=== PATIENT | female | born 1930 | race Two or more races ===

== ENCOUNTER 2019-10-01 10:39 | Inpatient (IN) | payer MEDICARE, MEDICAID ==
[~2019-10-01] VITALS: Ht 152.4 cm; Wt 72.0 kg
[~2019-10-01 10:39] MED LIST: ALPR0.254 PO; LIS10T PO; PRAV20TA3 PO; Pantoprazole Sodium Sesquihydr PO; RIVA20TA PO; SERT-274 PO
[2019-10-01] MEDS ORDERED: FAMOTIDINE (10MG/ML) 2ML VL IV ONE (12:15)
[2019-10-01] MEDS ORDERED: ACETAMINOPHEN 325 MG RECT SUPP PR PRN (12:15)
[2019-10-01] MEDS ORDERED: hydrALAZINE HCL 20 MG/ML VL IV PRN (12:30)
[2019-10-01 13:31] LABS: Basophils # (auto) 0 uL; Basophils % (auto) 0.4 % (0.0-2.0); Eosinophils # (auto) 0 uL; Eosinophils % (auto) 0.4 % (0.0-7.0); Hematocrit 45.2 % (36.0-46.0); Hemoglobin 15.2 g/dL (12.2-16.2); Lymphocytes # (auto) 1.4 uL; Lymphocytes % (auto) 23.9 % (10.0-50.0); Mean Corpuscular Hemoglobin 30.6 pg (28.0-32.0); Mean Corpuscular Hgb Conc. 33.7 g/dL (32.0-36.0); Mean Corpuscular Volume 90.8 fL (80.0-100.0); Monocytes # (auto) 0.6 uL; Monocytes % (auto) 9.5 % (0.0-12.0); Neutrophils # (auto) 3.8 uL; Neutrophils % (auto) 65.8 % (37.0-80.0); Nucleated Red Blood Cells % 0.1 %; Platelet Count (auto) 111 10^3/uL (140-450); Red Blood Cells 4.98 10^6/uL (4.0-5.20); Red Cell Distribution Width 14.5 % (11.8-14.3); White Blood Cell 5.8 10^3/uL (4.4-10.8)
[2019-10-01 13:46] LABS: Calcium 9.3 mg/dL (8.5-10.1); INR 1.07 (0.9-1.15); Partial Thromboplastin Time 27.1 sec (23.64-32.05); Potassium 4.1 mmol/L (3.5-5.1)
[2019-10-01 13:50] LABS: BUN/Creatinine Ratio 21.7; Bilirubin, Total 0.4 mg/dL (0.2-1.0)
[2019-10-01 13:52] VITALS: BP 160/90
[2019-10-01] MEDS: D5W/SOD CHL 0.45%/KCL 20MEQ 1,000 ML IV SCH (15:46)
[2019-10-01 15:58] LABS: Urine Bacteria FEW /hpf (None Seen); Urine Blood Negative /uL (Negative); Urine Specific Gravity 1.011 (1.001-1.035); Urine WBC 44 /hpf (0 - 5); Urine WBC Clumps PRESENT /hpf (None Seen)
[2019-10-01 17:00] VITALS: BP 164/97
[2019-10-01] MEDS ORDERED: GABA100C9 PO (18:20)
[2019-10-01 22:00] VITALS: BP 131/51
[2019-10-01] MEDS: ALPRAZolam 0.25 MG TAB PO SCH (22:10)
[2019-10-02] MEDS: MORPHINE SULF INJ 2 MG/ML SYRINGE 1ML IV PRN ×2 (02:35→19:58)
[2019-10-02] MEDS: D5W/SOD CHL 0.45%/KCL 20MEQ 1,000 ML IV SCH ×2 (04:38→21:35)
[2019-10-02 05:00] VITALS: BP 112/49
[2019-10-02] MEDS: ALPRAZolam 0.25 MG TAB PO SCH (06:00)
[2019-10-02] MEDS ORDERED: MIDAZOLAM HCL 5 MG/ML-1ML VIAL ONE (08:35)
[2019-10-02] MEDS ORDERED: NALOXONE HCL 0.4 MG/ML VIAL ONE (08:35)
[2019-10-02] MEDS ORDERED: LIDOCAINE VISCOUS 2% 15ML UD ONE (08:35)
[2019-10-02] MEDS ORDERED: FLUMAZENIL 0.1 MG/ML INJ 10ML MDV IV ONE (08:35)
[2019-10-02] MEDS ORDERED: SODIUM CHLORIDE LOCK 10 ML ONE (08:35)
[2019-10-02] MEDS ORDERED: fentaNYL CITRATE 100 MCG/2 ML VL ONE (08:35)
[2019-10-02] MEDS ORDERED: diphenhdrAMINE HCL 50 MG/1 ML VL ONE (08:36)
[2019-10-02 09:00] VITALS: BP 154/77
[2019-10-02] MEDS ORDERED: FAMOTIDINE (10MG/ML) 2ML VL IV SCH (10:00)
[2019-10-02] MEDS ORDERED: LORazepam 2MG/ML-1ML VIAL IV PRN (10:15)
[2019-10-02] MEDS ORDERED: cefTRIAXone 1GM/50ML D5W 50 ML IV ONE (10:15)
[2019-10-02 13:00] VITALS: BP 131/65
[2019-10-02 17:00] VITALS: BP 124/47
[2019-10-02] MEDS: OMEPRAZOLE 20MG/10ML ORAL SUSP GT SCH (17:23)
[2019-10-02 22:03] VITALS: BP 155/80
[2019-10-03 05:00] VITALS: BP 123/56
[2019-10-03 05:15] LABS: Basophils # (auto) 0 uL; Basophils % (auto) 0.5 % (0.0-2.0); Eosinophils # (auto) 0 uL; Eosinophils % (auto) 0.4 % (0.0-7.0); Hematocrit 39.9 % (36.0-46.0); Hemoglobin 13.7 g/dL (12.2-16.2); Lymphocytes # (auto) 1.3 uL; Lymphocytes % (auto) 21.1 % (10.0-50.0); Mean Corpuscular Hemoglobin 31.2 pg (28.0-32.0); Mean Corpuscular Hgb Conc. 34.3 g/dL (32.0-36.0); Monocytes # (auto) 0.7 uL; Monocytes % (auto) 10.6 % (0.0-12.0); Neutrophils # (auto) 4.2 uL; Neutrophils % (auto) 67.4 % (37.0-80.0); Platelet Count (auto) 106 10^3/uL (140-450); Red Blood Cells 4.38 10^6/uL (4.0-5.20); Red Cell Distribution Width 14.4 % (11.8-14.3); White Blood Cell 6.3 10^3/uL (4.4-10.8)
[2019-10-03 05:36] LABS: Calcium 8.2 mg/dL (8.5-10.1); Potassium 3.9 mmol/L (3.5-5.1)
[2019-10-03 05:38] LABS: BUN/Creatinine Ratio 22.8
[2019-10-03 08:36] VITALS: BP 114/53
[2019-10-03] MEDS ORDERED: cefTRIAXone 1GM/50ML D5W 50 ML IV SCH (09:00)
[2019-10-03] MEDS: OMEPRAZOLE 20MG/10ML ORAL SUSP GT SCH (11:00)
[2019-10-03 12:45] VITALS: BP 114/53
[2019-10-03 12:50] VITALS: BP 100/49
[2019-10-03 16:49] VITALS: BP 104/68
== END 2019-10-03 14:15 | disposition hospice, home (50) | DRG 394 ==
LOC: CENTRAL 10:39
PROVIDERS: ADMIT Internal Medicine; ATTEND Internal Medicine
PROC: 0D20XUZ Change Feeding Device in Upper Intestinal Tract, External Approach (ICD-10-PCS; principal; 2019-10-02 12:49)
DX: K94.23 Gastrostomy malfunction (principal); D68.69 Other thrombophilia; N39.0 Urinary tract infection, site not specified; I48.91 Unspecified atrial fibrillation; G30.9 Alzheimer's disease, unspecified; F02.80 Dementia in other diseases classified elsewhere, unspecified severity, without behavioral disturbance, psychotic disturbance, mood disturbance, and anxiety; I25.10 Atherosclerotic heart disease of native coronary artery without angina pectoris; Y83.3 Surgical operation with formation of external stoma as the cause of abnormal reaction of the patient, or of later complication, without mention of misadventure at the time of the procedure; I10 Essential (primary) hypertension; K20.9 Esophagitis, unspecified; Z74.01 Bed confinement status; Z95.0 Presence of cardiac pacemaker; Z95.1 Presence of aortocoronary bypass graft; Z88.0 Allergy status to penicillin; Z91.018 Allergy to other foods
CPT/HCPCS: 36415; 43246; 71045; 80048; 80053; 81001; 85025; 85610; 85730; 87086; G0378; J0696; J2250; J3490